=== PATIENT | female | born 1980 | race Caucasian/White ===

== ENCOUNTER 2019-01-03 09:13 | Outpatient (CLI) | payer OTHER ==
--- NOTE | 2019-01-08 11:22 | OP Clinic Progress Note ---
DATE OF VISIT: 01/03/2019 SUBJECTIVE: Pablo is a 38-year-old female presenting to clinic today with her family for painful ingrown toenail of the right and left great toe lateral border for both. The patient was seen recently and we are planning on doing the procedure on the left great toe lateral border once she finished recovering from her hysterectomy that she had done on 12/13/2018 and she also states that she has begun having pain on the right great toe lateral border as well and would like both procedures taken care of today. The patient has a significant smoking history and understands that she may have the limit of an increased risk of a nonhealing due to this, but she would like to go forward with it anyway as they have been bothering her and becoming painful. She does not admit to any fever, chills, nausea, vomiting, shortness of breath or chest pain. She does admit to an allergy to she believes Percocet as well as tramadol and amoxicillin. These are of note and we will keep that in mind if we do any sort of antibiotic. OBJECTIVE: Vitals: Temperature 98.1, heart rate 108, respiration rate 18, blood pressure 108/65, O2 sat is 96% on room air. Vascular: 2+ DP and PT pulses bilateral feet. Capillary refill time less than 3 seconds to the toes right foot. There is hair growth for the toes noted bilaterally. Dermatologic: There is no significant edema noted and there is not really any obvious irritation noted bilateral great toes. There is no ecchymosis or erythema or drainage of any kind noted. Musculoskeletal: There is pain on palpation, however, noted at the lateral border of the right and left great toenails. The patient from previous exam has normal arches bilaterally. Neurologic: Light touch sensation is intact to the toes bilaterally, but not to the fourth and fifth toes bilaterally per previous exam. The patient had per previous exam sharp and dull sensation that was intact to the toes bilaterally, but absent at the heel. Positive Tinel's sign shooting up the leg of the right tibial nerve area and negative Tinel's sign elsewhere bilateral tibial nerves or common peroneal nerves bilaterally per previous exam. ASSESSMENT AND PLAN: 1. Controlled type 2 diabetes mellitus with diabetic neuropathy, unspecified whether intermission coordinator insulin use, E11.40. 2. Onychocryptosis right and left great toe with lateral border. A good discussion regarding the risk and benefit of surgery for a partial nail avulsion with chemical matrixectomy of the lateral border of the right and left great toenails was had with the patient that included, but not limited to bleeding, infection, possible loss of toe, etc. and nonhealing and the patient understands these risks especially with her smoking habit and would like to go forward with this procedure with confidence that it will heal just fine. She does have very quick capillary refill time and I believe that because of this she should be able to heal very well. PROCEDURE #1: Partial nail avulsion with chemical matrixectomy of the right and left great toenail lateral borders was performed. Consent was signed and placed in the chart as discussed above. A 4 mL mix of 1:1 of 2% lidocaine plain and 0.5% Marcaine plain were injected into the base of the right great toe after an alcohol swab was utilized to cleanse the base of the toe first and the toe was found to have been anesthetized well. At this time the toe was exsanguinated and a toe tourniquet applied. The toe was cleansed with a Betadine prep. At this time a nail spatula and nail splitter was utilized to avulse the right great toe lateral nail border. This was removed and found that there was no nail remaining in the edge. The site was rinsed with copious amount of normal saline and phenol was then applied after first protecting the edges of the skin with triple antibiotic ointment. The phenol was applied in increments of 45 seconds, 30 seconds and 30 seconds. The toe tourniquet was removed and a prompt hyperemic response was noted to the right great toe. 70% isopropyl alcohol was then utilized to cleanse the wound site of the right great toe. This was then rinsed with a copious amount of normal saline, dried and dressings were applied consisting of Silvadene, 4x4 gauze, 2-inch Juanita and 1-inch Coban beginning on the great toe and ending on the distal forefoot of the right foot to help hold it on the toe. The patient tolerated this procedure very well. She had very minor bleeding noted after the tourniquet was removed, but there was a prompt hyperemic response to the great toe. PROCEDURE #2: An identical procedure was performed with the same amount of anesthetic on the left great toe lateral border. The patient tolerated this procedure well also. The patient was given post-procedure instructions verbally and by written instructions and is to return to clinic in one week for followup, where we will remove any crusty drainage as needed. The patient had no further questions and we will see her in one week and if there are any concerns she is to notify us. William Minaya D.P.M. /[employer]ut[employer]el [id number] /mab MTDD
== END 2019-01-03 10:00 ==
LOC: POD 09:13
PROVIDERS: ATTEND Podiatrist Foot & Ankle Surgery
DX: E11.40 Type 2 diabetes mellitus with diabetic neuropathy, unspecified (principal); L60.0 Ingrowing nail
CPT/HCPCS: 11730; 99202; J2001; J3490; A4554

== ENCOUNTER 2019-01-10 09:52 | Outpatient (CLI) | payer OTHER ==
--- NOTE | 2019-01-14 14:44 | OP Clinic Progress Note ---
DATE OF VISIT: 01/10/2019 SUBJECTIVE: Pablo is a 38-year-old female presenting to the clinic today for follow up after having a partial nail avulsion with chemical matrixectomy performed on the left great toe lateral nail border and right great toe lateral nail border on 01/03/2019. The patient states that she is feeling much better and has just slight pain on the right great toe lateral border. She is doing antibiotic and a Band-Aid daily. She is in a regular shoe at this time and feeling great. She does not admit to any fevers, chills, nausea, vomiting, shortness of breath or chest pain. She is a diabetic type 2 female as well. OBJECTIVE: Vitals: Temperature 97.0 degrees Fahrenheit, heart rate 94, respiration rate 16, blood pressure 118/67. O2 saturation is 98% on room air. Vascular: 2+ DP and PT pulses, bilateral feet. Capillary refill time is less than 3 seconds to the toes bilateral feet. There is mild hair growth on the toes bilaterally. There is virtually no edema noted bilateral feet. Dermatologic: There is no erythema or warmth or malodor noted bilateral great toes. There is very slight slough in the procedure site of the lateral border of bilateral great toenails. This was debrided with a curette and rinsed and had antibiotic ointment and a Band-Aid applied today. There is no ecchymosis or any other concerns of the skin. Musculoskeletal: There is mild on palpation noted, right great toe lateral border, after chemical matrixectomy. There is no pain on palpation on the left great toe lateral border. Neurologic: Light touch sensation is intact to the toes bilaterally, but according to the previous exam not to the fourth and fifth toes bilaterally. ASSESSMENT AND PLAN: 1. Controlled type 2 diabetes mellitus with diabetic neuropathy, unspecified whether senior care insulin use, E11.40. 2. Onychocryptosis, bilateral great toe lateral borders. 3. Postprocedure care with date of procedure 01/03/2019 one week status post partial nail avulsion with chemical matrixectomy of the lateral border of the left and right great toenails. The sites were lightly debrided at the wound edges of the curette and rinsed with normal saline, dried and triple antibiotic ointment and a Band-Aid was applied to bilateral great toes. The patient will continue to do antibiotic ointment and a Band-Aid daily for seven days and then just a Band-Aid for seven days. She has no further questions and will return to clinic in two weeks for follow up. William Minaya D.P.M./Zachariah [id number] /mab MTDD
== END 2019-01-10 10:25 ==
LOC: POD 09:52
PROVIDERS: ATTEND Podiatrist Foot & Ankle Surgery
DX: Z48.817 Encounter for surgical aftercare following surgery on the skin and subcutaneous tissue (principal); L60.0 Ingrowing nail; E11.40 Type 2 diabetes mellitus with diabetic neuropathy, unspecified
CPT/HCPCS: 99213; A4554